=== PATIENT | male | born 1970 | race Caucasian/White ===

== ENCOUNTER 2016-07-25 11:15 | Emergency (ER) | payer BC ==
[~2016-07-25] VITALS: Ht 175.2 cm; Wt 72.6 kg
[~2016-07-25 11:15] MED LIST: ANAPROX DS550 MG PO; ASPIR 8181 MG PO; ASPIRIN81 M1 PO; AUGMENTIN 875 M1 TAB PO; BACTRIM DS 8001 TA1 PO; BP MED PO; CHOLESTEROL MED PO; COLACE100 MG PO; DAYPRO600 M1 PO; FLEXERIL10 MG PO; FLONASE ALLERG9.9 ML NAS; HEART MED PO; KEFLEX500 MG PO; LASIX40 MG PO; MOTRIN800 MG PO; NICODERM C14 MG/24 H TD; OXYCODONE HCL10 M1 PO; PERCOCET 325 MG1 TA7 PO; PREDNISONE10 MG PO; PREDNISONE20 M1 PO; ROBITUSSIN AC 110 ML PO; SENNA CONCENTR8.6 M1 PO; SIMVASTATIN20 MG PO; VICODIN 5/500 505 MG PO; VICODIN ES 7501 TAB PO
[2016-07-25 11:59] LABS: BASO # 0.1 10*3/uL (0.0-0.1); BASO % 0.5 % (0.0-1.0); EOS % 0.2 % (1.0-4.0); HEMATOCRIT 45.9 % (42.0-52.0); HEMOGLOBIN 15.3 g/dl (14.0-18.0); IG # 0.1 10*3/uL (0.0-0.1); LYMPH # 2.6 10*3/uL (1.3-4.4); LYMPH % 19.4 % (27.0-41.0); MEAN CELL VOLUME 96.4 fl (80.0-94.0); MEAN CORPUSCULAR HGB 32.1 pg (27.0-31.0); MEAN CORPUSCULAR HGB CONC 33.3 g/dl (33.0-37.0); MEAN PLATELET VOLUME 10.7 fl (9.6-12.3); MONO # 0.8 10*3/uL (0.1-1.0); MONO % 5.9 % (3.0-9.0); NEUT # 9.8 10*3/uL (2.3-7.9); NEUT % 73.5 % (47.0-73.0); PLATELET COUNT AUTOMATED 222 10*3/uL (130-400); RED BLOOD COUNT 4.76 10*6/uL (4.50-5.90); RED CELL DISTRI WIDTH 12.8 % (0-14.5); WHITE BLOOD COUNT 13.3 10*3/uL (4.8-10.8)
[2016-07-25 12:19] LABS: PROTHROMBIN TIME 10.1 SECONDS (9.0-12.4)
[2016-07-25 12:20] LABS: ALBUMIN 3.5 gm/dl (3.1-4.5); ALKALINE PHOSPHATASE 80 U/L (45-117); BILIRUBIN, TOTAL 0.4 mg/dl (0.2-1.0); BUN 13 mg/dl (7-24); CARBON DIOXIDE 24 mmol/L (21-32); CHLORIDE 102 mmol/L (98-107); EST GLOM FILT AFRICAN AMERICAN > 60 ml/min; GLUCOSE 189 mg/dL (65-99); POTASSIUM 3.4 mmol/L (3.5-5.1); SGOT/AST 14 IU/L (3-35); SGPT/ALT 30 U/L (12-78); SODIUM 139 mmol/L (136-145); TOTAL PROTEIN 6.9 gm/dL (6.4-8.2)
[2016-07-25 12:22] LABS: MAGNESIUM 2.3 mg/dL (1.5-2.1)
== END 2016-07-25 12:15 | disposition short-term general hospital (02) ==
LOC: ED 11:15
PROVIDERS: Emergency Medicine
DX: I21.3 ST elevation (STEMI) myocardial infarction of unspecified site (principal); Z95.5 Presence of coronary angioplasty implant and graft; Z98.890 Other specified postprocedural states; Z79.82 Long term (current) use of aspirin

== ENCOUNTER 2017-03-26 00:04 | Emergency (ER) | payer SELFPAY ==
[~2017-03-26] VITALS: Ht 162.5 cm; Wt 72.6 kg
== END 2017-03-26 01:36 | disposition home or self-care (01) ==
LOC: ED 00:04
DX: T63.441A Toxic effect of venom of bees, accidental (unintentional), initial encounter (principal); F17.200 Nicotine dependence, unspecified, uncomplicated; Z79.82 Long term (current) use of aspirin; Z79.899 Other long term (current) drug therapy; Y92.9 Unspecified place or not applicable

== ENCOUNTER 2018-06-10 04:36 | Emergency (ER) | payer BC ==
[~2018-06-10] VITALS: Ht 162.5 cm; Wt 68.0 kg
--- NOTE | ~2018-06-10 | EKG ---
[place], [place] ELECTROCARDIOGRAM REPORT NAME: TANYA JESUS UNIT #: [id number] ROOM: DOCTOR: EPIPHANY DRAFT REPORT BIRTHDATE: [birth year] [facility] Test Date: 2018-06-10 Test Time: 05:23:22 Pat Name: TANYA JESUS Department: Room: Gender: [employer]: : 1970 Requested By: KYLE HASTINGS Order Number: [id number] Reading MD: Arianna Magallanes MD Measurements Intervals [place] Rate: 76 P: 76 MD: 155 QRS: -16 QRSD: 85 T: 31 QT: 377 QTc: 424 Interpretive Statements Sinus rhythm Borderline left axis deviation Baseline wander in lead(s) II,III,aVF Electronically Signed On 06-14-2018 11:07:27 PST by Arianna Magallanes MD CM:EKGRPT:ELECTROCARDIOGRAM REPORT [id number] KYLE HASTINGS MD EPIPHANY DRAFT REPORT KYLE HASTINGS MD
[2018-06-10 05:28] LABS: BASO # 0.1 10*3/uL (0.0-0.1); BASO % 0.6 % (0.0-1.0); EOS # 0.2 10*3/uL (0.0-0.4); EOS % 1.6 % (1.0-4.0); HEMATOCRIT 44.4 % (42.0-52.0); HEMOGLOBIN 15.1 g/dl (14.0-18.0); LYMPH # 2.8 10*3/uL (1.3-4.4); MEAN CELL VOLUME 94.7 fl (80.0-94.0); MEAN CORPUSCULAR HGB 32.2 pg (27.0-31.0); MEAN PLATELET VOLUME 9.5 fl (9.6-12.3); MONO # 0.9 10*3/uL (0.1-1.0); NEUT # 6.9 10*3/uL (2.3-7.9); NEUT % 63.3 % (47.0-73.0); PLATELET COUNT AUTOMATED 272 10*3/uL (130-400); RED BLOOD COUNT 4.69 10*6/uL (4.50-5.90); RED CELL DISTRI WIDTH 13.1 % (0-14.5); WHITE BLOOD COUNT 10.9 10*3/uL (4.8-10.8)
[2018-06-10 05:41] LABS: ACT PARTIAL THROMBO TIME 25.8 SECONDS (20.8-31.5); INTERNATIONAL NORM RATIO 0.9 (2.0-3.5)
[2018-06-10 05:58] LABS: ALBUMIN 3.2 gm/dl (3.1-4.5); ALKALINE PHOSPHATASE 81 U/L (45-117); BUN 16 mg/dl (7-24); CHLORIDE 109 mmol/L (98-107); CREATININE 1.09 mg/dL (0.70-1.30); POTASSIUM 4.2 mmol/L (3.5-5.1); SGOT/AST 15 IU/L (3-35); SGPT/ALT 18 U/L (12-78); SODIUM 142 mmol/L (136-145); TOTAL PROTEIN 6.6 gm/dL (6.4-8.2)
[2018-06-10 06:04] LABS: TROPONIN I < 0.015 ng/ml (<0.045)
[2018-06-10 06:45] LABS: BILIRUBIN NEGATIVE (NEGATIVE); BLOOD NEGATIVE (NEGATIVE); CLARITY CLEAR (CLEAR); COLOR YELLOW (YELLOW); GLUCOSE NEGATIVE (NEGATIVE); KETONE NEGATIVE (NEGATIVE); LEUKO ESTERASE NEGATIVE (NEGATIVE); NITRITE NEGATIVE (NEGATIVE); PH 5.5 (5.0-9.0); SPECIFIC GRAVITY >= 1.030 (1.005-1.030); UROBILINOGEN 0.2 E.U./dl (0.2-1.0)
[2018-06-10 06:56] LABS: BACTERIA TRACE
== END 2018-06-10 08:05 | disposition short-term general hospital (02) ==
LOC: ED 04:36
PROVIDERS: Emergency Medicine Emergency Medical Services
DX: I74.3 Embolism and thrombosis of arteries of the lower extremities (principal); I25.2 Old myocardial infarction; F17.200 Nicotine dependence, unspecified, uncomplicated; Z79.82 Long term (current) use of aspirin; Z79.899 Other long term (current) drug therapy

== ENCOUNTER 2021-07-01 13:14 | Emergency (ER) | payer BC ==
[~2021-07-01] VITALS: Wt 65.8 kg
[2021-07-01 14:24] LABS: BASO # 0.1 10*3/uL (0.0-0.1); BASO % 0.6 % (0.0-1.0); EOS % 0.2 % (1.0-4.0); HEMATOCRIT 39.9 % (42.0-52.0); LYMPH # 2.1 10*3/uL (1.3-4.4); LYMPH % 20.8 % (27.0-41.0); MEAN CELL VOLUME 94.5 fl (80.0-94.0); MEAN CORPUSCULAR HGB 30.8 pg (27.0-31.0); MEAN CORPUSCULAR HGB CONC 32.6 g/dl (33.0-37.0); MEAN PLATELET VOLUME 9.7 fl (9.6-12.3); MONO # 0.7 10*3/uL (0.1-1.0); NEUT # 6.9 10*3/uL (2.3-7.9); NEUT % 69.6 % (47.0-73.0); PLATELET COUNT AUTOMATED 305 10*3/uL (130-400); RED BLOOD COUNT 4.22 10*6/uL (4.50-5.90); RED CELL DISTRI WIDTH 13.1 % (0-14.5); WHITE BLOOD COUNT 9.9 10*3/uL (4.8-10.8)
[2021-07-01 14:39] LABS: ALBUMIN 2.6 gm/dl (3.1-4.5); ALKALINE PHOSPHATASE 56 U/L (45-117); BUN 10 mg/dl (7-24); CHLORIDE 103 mmol/L (98-107); CREATININE 0.96 mg/dL (0.70-1.30); POTASSIUM 3.9 mmol/L (3.5-5.1); SGOT/AST 43 IU/L (3-35); SGPT/ALT 54 U/L (12-78); SODIUM 133 mmol/L (136-145); TOTAL PROTEIN 7.2 gm/dL (6.4-8.2)
[2021-07-01 15:09] LABS: BILIRUBIN Negative (Negative); BLOOD Negative (Negative); CLARITY Clear (Clear); COLOR Yellow (Yellow); GLUCOSE Negative (Negative); KETONE Negative (Negative); LEUKO ESTERASE Negative (Negative); NITRITE Negative (Negative); PH 5.5 (4.5-8.0); UROBILINOGEN 0.2 E.U./dl (0.0-1.0)
[2021-07-01 15:14] LABS: BACTERIA TRACE; EPITHELIAL CELLS 0-2; RBC 0-2 rbc/hpf (0-2); WBC 0-2 wbc/hpf (0-5)
[2021-07-01] MEDS ORDERED: ZITHROMAX250 MG PO (15:57)
[2021-07-01] MEDS ORDERED: PLAVIX75 M1 PO (15:57)
[2021-07-01] MEDS ORDERED: CRESTOR20 M1 PO (15:57)
== END 2021-07-01 16:08 | disposition home or self-care (01) ==
LOC: ED 13:14
PROVIDERS: Student in an Organized Health Care Education/Training Program
DX: J18.9 Pneumonia, unspecified organism (principal); Z20.822 Contact with and (suspected) exposure to COVID-19; Z79.899 Other long term (current) drug therapy; Z79.82 Long term (current) use of aspirin

== ENCOUNTER 2021-08-01 10:57 | Emergency (ER) | payer BC ==
[~2021-08-01] VITALS: Ht 162.5 cm; Wt 63.5 kg
[~2021-08-01 10:57] MED LIST changes: +CRESTOR20 M1 PO; +PLAVIX75 M1 PO; +ZITHROMAX250 MG PO
[2021-08-01] MEDS ORDERED: CEPHALEXIN500 M1 PO (16:11)
== END 2021-08-01 16:27 | disposition home or self-care (01) ==
LOC: ED 10:57
DX: L76.34 Postprocedural seroma of skin and subcutaneous tissue following other procedure (principal); Z79.899 Other long term (current) drug therapy; Z79.82 Long term (current) use of aspirin

== ENCOUNTER 2021-08-14 16:09 | Emergency (ER) | payer BC ==
[~2021-08-14 16:09] MED LIST changes: +CEPHALEXIN500 M1 PO
== END 2021-08-14 16:45 | disposition left against medical advice (07) ==
LOC: ED 16:09
DX: Z00.8 Encounter for other general examination (principal); Z53.21 Procedure and treatment not carried out due to patient leaving prior to being seen by health care provider

== ENCOUNTER 2024-07-17 12:36 | Emergency (ER) | payer BC ==
[~2024-07-17] VITALS: Ht 162.5 cm; Wt 68.0 kg
[2024-07-17 13:46] LABS: BASO # 0.1 10*3/uL (0.0-0.1); BASO % 0.7 % (0.0-1.0); EOS % 0.4 % (1.0-4.0); HEMATOCRIT 52.7 % (42.0-52.0); MEAN CELL VOLUME 95.5 fl (80.0-94.0); MEAN CORPUSCULAR HGB 31.5 pg (27.0-31.0); MEAN PLATELET VOLUME 9.1 fl (9.6-12.3); MONO # 0.8 10*3/uL (0.1-1.0); MONO % 7.2 % (3.0-9.0); NEUT # 7.8 10*3/uL (2.3-7.9); NEUT % 69.9 % (47.0-73.0); PLATELET COUNT AUTOMATED 289 10*3/uL (130-400); RED BLOOD COUNT 5.52 10*6/uL (4.50-5.90); RED CELL DISTRI WIDTH 13.2 % (0-14.5); WHITE BLOOD COUNT 11.1 10*3/uL (4.8-10.8)
[2024-07-17 14:07] LABS: BUN 9 mg/dl (9-23); CHLORIDE 104 mmol/L (98-107); POTASSIUM 3.7 mmol/L (3.4-5.1)
== END 2024-07-17 14:41 | disposition home or self-care (01) ==
LOC: ED 12:36
PROVIDERS: Nurse Practitioner Family
DX: R10.32 Left lower quadrant pain (principal); R10.31 Right lower quadrant pain; M79.604 Pain in right leg; M79.605 Pain in left leg; I10 Essential (primary) hypertension; E78.00 Pure hypercholesterolemia, unspecified; Z98.890 Other specified postprocedural states; Z95.5 Presence of coronary angioplasty implant and graft